=== PATIENT | female | born 1995 | race Caucasian/White ===

== ENCOUNTER 2022-12-23 13:50 | Emergency (ER) | payer OTHER, SELFPAY ==
[2022-12-23 13:51] VITALS: BP 110/52; PULSE 82; RESP 18; TEMP 36.6; O2SAT 100; BMI 23.3
--- NOTE | 2022-12-23 14:32 | EX.ED.UPPERE ---
HPI History of Present Illness Chief Complaint: Laceration Narrative Narrative: 27-year-old female presents with laceration to her right upper extremity that she sustained prior to arrival. She states that she was in the basement cleaning off a metal shelf. The pill fell, and she dragged her right arm across the sharp edge of the metal shelving unit. She sustained a laceration to the volar aspect of her right proximal forearm. She is unsure of her last tetanus immunization. She is right-hand dominant. She denies hitting her head or loss of consciousness, no other injury. Tetanus Immunization: Unknown [facility] Home Medications NK 12/23/22 [History Last Taken Unknown] Allergy/AdvReac Type Severity Reaction Status Date / Time No Known Allergies Allergy Verified 12/23/22 13:54 Social History Smoking Status: Never smoker ROS ROS ED ROS Narrative Constitutional: No fever, no chills. HEENT: No sore throat. No neck pain. No loss of vision. No rhinorrhea. Cardiovascular: No chest pain. No palpitations. No pedal edema. Respiratory: No cough, no shortness of breath. Abdominal: No abdominal pain. No nausea. No vomiting. Genitourinary: No dysuria. No hematuria. Musculoskeletal: No myalgias. No arthralgias. Neurologic: No headaches. No dizziness. No lightheadedness. Skin: No rash. No change in color. Laceration to right forearm. Psychiatric: No depression. No anxiety. EXAM Physical Exam Narrative Exam Narrative: Afebrile. Vital signs noted. HEENT: Normocephalic. Atraumatic. PERRL, EOMI. Neck soft and supple. No point tenderness or step off. Cardiovascular: Regular rate and rhythm. No murmurs, rubs, or gallops appreciated. Respiratory: No tachypnea. Lungs clear to auscultation bilaterally. Gastrointestinal: Abdomen soft, nontender, with normoactive bowel sounds. No rebound or guarding. Neurological: Awake. Alert. Nonfocal, nonlateralizing. Skin: No rash. Normal color. No pallor. 4 cm laceration running obliquely on medial aspect of right forearm. Neurovascular intact distally with palpable radial pulse. No apparent tendon involvement through full range of motion of right wrist and fingers. No active bleeding. Musculoskeletal: No pedal edema. Full range of motion extremities. Const Vital Signs: 12/23/22 13:51 Temperature 97.9 F Temperature Source Temporal Pulse Rate 82 Respiratory Rate 18 Blood Pressure 110/52 L Blood Pressure Mean 71 Pulse Ox 100 MDM MDM MDM Narrative Medical decision making narrative: I do not feel that x-rays are indicated. There is no bony tenderness. I discussed Adacel immunization with her and she will be given this along with Tylenol for analgesia. She was informed of the risk of infection and scarring and acknowledges an understanding. She will undergo laceration repair. See procedure note for details. She is to look for signs of infection. They state that they will go to their primary care provider for suture removal in 10 days. I do not feel she requires observation or x-rays once again, there was no evidence of foreign body upon examination. Return instructions to the emergency department were reviewed. Disposition is discharged home in stable condition. History & Record Review Discussion w/independent historian: Patient and Family Additional record(s) reviewed:: No prior records Procedures Lacerations Right forearm: Length: 4 in Depth: Skin Shape: Linear Prep: Sterile Conditions and Shure-Clens Laceration repair: Lidocaine (8 mL), Skin sutures and Wound explored Number of Sutures/[facility]: 11 Suture Information: Ethilon, Simple and 4-0 Comment: Patient tolerated procedure well. Discharge Plan Triage Chief Complaint: Laceration ED Provider: Alejandro Almeida Dx/Rx/DC Orders Clinical Impression: Laceration of forearm, right, Immunization, tetanus-diphtheria Instructions: ED Laceration Extremity Prescriptions: No Action NK Primary Care Provider: NOT,DEFINED Referrals: NOT,DEFINED [Primary Care Provider] - Activity Restrictions/Additional Instructions: Have the sutures removed in 10 days by your primary care provider or return to the emergency department. Disposition Disposition: Home, Self Care
[2022-12-23] MEDS: Lidocaine 1% (20 ml mdv) 20 ML Vial INFILT (14:38)
[2022-12-23] MEDS: Acetaminophen 500 MG Tablet 1000 MG PO (14:38)
[2022-12-23] MEDS: Diphth,Pertuss(Acell),Tet Vac 0.5 ML Vial IM (14:39)
== END 2022-12-23 16:09 | disposition home or self-care (01) ==
LOC: ED 16:04
PROVIDERS: Emergency Provider Emergency Medicine; PCP Family Medicine; Visit Provider Emergency Medicine
DX: S51.811A Laceration without foreign body of right forearm, initial encounter (principal); Z23 Encounter for immunization; X58.XXXA Exposure to other specified factors, initial encounter
CPT/HCPCS: 12002; 90471; 90715; 99284